=== PATIENT | male | born 1975 | race African-American/Black ===

== ENCOUNTER → 2020-02-22 | Outpatient (CLI) | payer MEDICAID ==
--- NOTE | 2020-02-22 11:30 | RADIOLOGY REPORT (SQ) ---
EXAM DESCRIPTION: CHEST PA/LATERAL IMAGES COMPLETED DATE/TIME: 02/22/2020 11:13 am REASON FOR STUDY: DYSPNEA, UNSPECIFIED COMPARISON: None. EXAM PARAMETERS: NUMBER OF VIEWS: two views TECHNIQUE: Digital Frontal and Lateral radiographic views of the chest acquired. RADIATION DOSE: NA LIMITATIONS: none FINDINGS: LUNGS AND PLEURA: No opacities, masses or pneumothorax. No pleural effusion. Hyperinflati on. MEDIASTINUM AND HILAR STRUCTURES: No masses or contour abnormalities. HEART AND VASCULAR STRUCTURES: Heart normal size. No evidence for failure. BONES: No acute findings. HARDWARE: None in the chest. OTHER: No other significant finding. IMPRESSION: Hyperinflation. No other evidence of acute intrathoracic process. TECHNICAL DOCUMENTATION: JOB ID: [id number] 2010 [employer]- All Rights Reserved Reading location - IP/workstation name: [email or web address]
== END ==
LOC: OD 10:46
PROVIDERS: ATTEND Internal Medicine
DX: R06.00 Dyspnea, unspecified (principal)
CPT/HCPCS: 71046

== ENCOUNTER 2020-02-28 12:28 | Inpatient (IN) | payer MEDICAID ==
--- NOTE | 2020-02-28 13:10 | ER Document Report ---
ED Medical Screen (RME) - General Chief Complaint: Abnormal Lab Results Stated Complaint: ABNORMAL LABS Time Seen by Provider: 02/28/20 13:05 Primary Care Provider: CABRERA RUIZ MD [Primary Care Provider] - Follow up as needed Notes: HPI: 44-year-old male presenting to the emergency department from urgent care for evaluation of significant anemia. Patient states over the last month he has noticed increasing shortness of breath with minimal exertion. No abdominal pain. States he eats a normal diet. Denies rectal bleeding or darkened stools. I have greeted and performed a rapid initial assessment of this patient. A comprehensive ED assessment and evaluation of the patient, analysis of test results and completion of the medical decision making process will be conducted by additional ED providers PHYSICAL EXAMINATION: Mild tachycardia. Lung sounds are clear to auscultation. No abdominal pain on palpation. Patient did come with lab work drawn at the clinic yesterday which shows a H&H of 3.8 and 15.5 I have greeted and performed a rapid initial assessment of this patient. A comprehensive ED assessment and evaluation of the patient, analysis of test results and completion of medical decision making process will be conducted by an additional ED providers. - Related Data Allergies/Adverse Reactions: No Known Allergies Allergy (Verified 02/28/20 12:45) Past Medical History - Social History Chew tobacco use (# tins/day): Yes Frequency of alcohol use: Social Drug Abuse: None Physical Exam - Vital signs Vitals: Temp Pulse Resp BP Pulse Ox 98.2 F 104 H 16 139/65 H 99 02/28/20 12:43 02/28/20 12:43 02/28/20 12:43 02/28/20 12:43 02/28/20 12:43 Course - Vital Signs Vital signs: Temp Pulse Resp BP Pulse Ox 98.2 F 104 H 16 139/65 H 99 02/28/20 12:43 02/28/20 12:43 02/28/20 12:43 02/28/20 12:43 02/28/20 12:43 Doctor's Discharge - Discharge Referrals: CABRERA RUIZ MD [Primary Care Provider] - Follow up as needed
[2020-02-28 13:23] LABS: MEAN CORPUSCULAR HEMOGLOBIN 16.4 pg (27.0-33.4); PLATELET COUNT 346 10^3/uL (150-450); RED BLOOD COUNT 2.66 10^6/uL (4.35-5.55); RED CELL DISTRIBUTION WIDTH 19.3 % (11.5-14.0); WHITE BLOOD COUNT 8.9 10^3/uL (4.0-10.5)
[2020-02-28 13:29] LABS: INTERNATIONAL RATION (INR) 1.07; PROTHROMBIN TIME 13.9 SEC (11.4-15.4)
[2020-02-28 13:35] LABS: HEMATOCRIT 14.6 % (37.9-51.0); HEMOGLOBIN 4.4 g/dL (13.5-17.0)
[2020-02-28 13:36] LABS: MEAN CORPUSCULAR VOLUME 55 fl (80-97)
[2020-02-28 13:40] LABS: ABSOLUTE LYMPHOCYTES# (MANUAL) 0.5 10^3/uL (0.5-4.7); ALBUMIN 3.8 g/dL (3.5-5.0); ALKALINE PHOSPHATASE 27 U/L (38-126); ANION GAP 9 (5-19); ASPARTATE AMINO TRANSFERASE 30 U/L (17-59); BASOPHILS % (MANUAL) 0 % (0-2); BILIRUBIN,DIRECT 0.2 mg/dL (0.0-0.4); BILIRUBIN,TOTAL 0.3 mg/dL (0.2-1.3); BLOOD UREA NITROGEN 18 mg/dL (7-20); CARBON DIOXIDE 21 mmol/L (22-30); CHLORIDE 106 mmol/L (98-107); EOSINOPHILS % (MANUAL) 1 % (0-6); GLUCOSE 99 mg/dL (75-110); LYMPHOCYTES % (MANUAL) 6 % (13-45); MONOCYTES % (MANUAL) 11 % (3-13); NUCLEATED RED BLOOD CELLS 2 /100 WBC (0); POTASSIUM 4.4 mmol/L (3.6-5.0); SEGMENTED NEUTROPHILS % (MAN) 82 % (42-78); TOTAL CELLS COUNTED 100; TOTAL PROTEIN 7.1 g/dL (6.3-8.2)
[2020-02-28 13:43] LABS: ANISOCYTOSIS 2+; HYPOCHROMASIA 3+; POIKILOCYTOSIS 1+; POLYCHROMASIA 1+; SCHISTOCYTES 1+; TARGET CELLS SLIGHT; TEAR DROP CELLS 1+
[2020-02-28 13:44] LABS: PLATELET COMMENT ADEQUATE; PLATELET LARGE PRESENT
--- NOTE | 2020-02-28 13:58 | ER Document Report ---
ED General - General Chief Complaint: Abnormal Lab Results Stated Complaint: ABNORMAL LABS Time Seen by Provider: 02/28/20 13:05 Primary Care Provider: CABRERA RUIZ MD [Primary Care Provider] - Follow up as needed Notes: Patient is a 44-year-old -English male with no reported past medical history who presents to the emergency department with a chief complaint of being sent here from the physician's office for a low hemoglobin of 4.4. Patient states he does feel a little winded or short of breath when he walks or exerts himself but states otherwise he feels fine. He denies any history of anemia. Denies any complaints resting in bed at this time. - Related Data Allergies/Adverse Reactions: No Known Allergies Allergy (Verified 02/28/20 12:45) Past Medical History - Social History Smoking Status: Never Smoker Chew tobacco use (# tins/day): Yes Frequency of alcohol use: Social Drug Abuse: None Family History: Hypertension Patient has suicidal ideation: No Patient has homicidal ideation: No Review of Systems - Review of Systems Cardiovascular: Other - Dyspnea on exertion -: Yes All other systems reviewed and negative Physical Exam - Vital signs Vitals: Temp Pulse Resp BP Pulse Ox 98.2 F 104 H 16 139/65 H 99 02/28/20 12:43 02/28/20 12:43 02/28/20 12:43 02/28/20 12:43 02/28/20 12:43 - General General appearance: Appears well, Alert In distress: None - HEENT Head: Normocephalic, Atraumatic Eyes: Normal Conjunctiva: Other - Pale palpebral conjunctiva inferiorly Extraocular movements intact: Yes Eyelashes: Normal Pupils: PERRL Mouth/Lips: Normal Mucous membranes: Moist Pharynx: Normal Neck: Normal, Supple - Respiratory Respiratory status: No respiratory distress Chest status: Nontender Breath sounds: Normal Chest palpation: Normal - Cardiovascular Rhythm: Regular Heart sounds: Normal auscultation - Abdominal Inspection: Normal Distension: No distension Bowel sounds: Normal Tenderness: Nontender Organomegaly: No organomegaly - Rectal Tenderness: No Stool: Heme positive Hemorrhoids: External - Extremities General upper extremity: Normal inspection, Nontender, Normal color, Normal ROM, Normal temperature General lower extremity: Normal inspection, Nontender, Normal color, Normal ROM, Normal temperature, Normal weight bearing. No: Jose's sign - Neurological Neuro grossly intact: Yes Cognition: Normal Orientation: AAOx4 Jarrod Coma Scale Eye Opening: Spontaneous Jarrod Coma Scale Verbal: Oriented Jarrod Coma Scale Motor: Obeys Commands Jarrod Coma Scale Total: 15 Speech: Normal Motor strength normal: LUE, RUE, LLE, RLE Sensory: Normal - Psychological Associated symptoms: Normal affect, Normal mood - Skin Skin Temperature: Warm Skin Moisture: Dry Skin Color: Normal Course - Re-evaluation Re-evalutation: 02/28/20 14:34 EK:35 PM, sinus at 97 bpm. Normal intervals. LVH. No STEMI. 02/28/20 15:[address] Ramires regarding the patient for admission. He requested surgical consultation for possible scoping to assess for any bleeding and to obtain iron studies before giving the blood. 2 units have been ordered as the patient's hemoglobin is 4.4. Patient is currently resting comfortably in the bed asymptomatic with stable vital signs. We will obtain the iron studies prior to transfusing 2 units. I spoke with Dr. Akins, surgery on-call who advised he will be happy to consult on the patient. I then spoke with Dr. Gay for ultimate admission, he will admit the patient to IMCU. 02/28/20 15:10 Rectal exam was performed, he was Hemoccult positive. Patient does admit to craving powdered starch that he has been eating recently. Dr. Gay informed and at bedside. - Vital Signs Vital signs: Temp Pulse Resp BP Pulse Ox 98.2 F 104 H 18 139/65 H 99 02/28/20 12:43 02/28/20 12:43 02/28/20 14:36 02/28/20 12:43 02/28/20 12:43 - Laboratory Result Diagrams: 02/28/20 12:59 02/28/20 12:59 Laboratory results interpreted by me: 02/28/20 02/28/20 02/28/20 12:59 12:59 12:59 RBC 2.66 L Hgb 4.4 L* Hct 14.6 L* MCV 55 L MCH 16.4 L MCHC 30.0 L RDW 19.3 H Seg Neuts % (Manual) 82 H Lymphocytes % (Manual) 6 L Sodium 136.0 L Carbon Dioxide 21 L Alkaline Phosphatase 27 L Crossmatch See Detail Discharge - Discharge Clinical Impression: Severe anemia, Microcytic anemia, Dyspnea on exertion, Blood in stool Condition: Stable Disposition: ADMITTED INPATIENT Admitting Provider: Victor Hugo (Hospitalist) Unit Admitted: IMCU Referrals: CABRERA RUIZ MD [Primary Care Provider] - Follow up as needed
[2020-02-28] MEDS ORDERED: NORMAL SALINE 250 ML IV PRN ×4 (14:27→15:16)
[2020-02-28] MEDS ORDERED: ONDANSETRON HCL INJ/PF 4 MG/2 ML SDV IV PRN (15:18)
[2020-02-28] MEDS ORDERED: PEDI NO 1 IV ONE (15:22)
[2020-02-28] MEDS ORDERED: VIT K IV ONE (15:22)
[2020-02-28] MEDS ORDERED: MVI IV ONE (15:22)
--- NOTE | 2020-02-28 15:31 | PDOC H&P ---
History of Present Illness Admission Date/PCP: CABRERA RUIZ Patient complains of: Shortness of breath associated with weakness History of Present Illness: GORDON AMOR is a 44 year old male With no significant past medical history went to primary care physician's office couple of days ago routine blood work indicates hemoglobin of 3.8. Patient came to the emergency room with complaints of palpitations associated with shortness of breath and generalized weakness. He admitted to using starches recently couple of spoons on daily basis. He also admitted to taking dirt for cravings until couple of months ago. The emergency room stool guaiac was positive. Patient denies any nausea denies any vomiting's denies any diarrhea. Is taking baby aspirin at home. Hemoglobin in the emergency room is 4.4 and plan is to admit him to IMCU transfuse 4 units of PRBC and surgical consult was requested. Patient vital signs are stable at this time. Past Surgical History Past Surgical History: Reports: Orthopedic Surgery - hip replacement Social History Information Source: Patient Smoking Status: Never Smoker Electronic Cigarette use?: No Frequency of Alcohol Use: Rare Hx Recreational Drug Use: No Hx Prescription Drug Abuse: No - Advance Directive Resuscitation Status: Full Code Family History Family History: Hypertension Parental Family History Reviewed: Yes - Family history of hypertension Children Family History Reviewed: Yes Sibling(s) Family History Reviewed.: Yes Medication/Allergy Home Medications: No Home Medications 02/28/20 Allergies/Adverse Reactions: No Known Allergies Allergy (Verified 02/28/20 12:45) Review of Systems Constitutional: PRESENT: fatigue, weakness. ABSENT: fever(s), headache(s) Eyes: ABSENT: visual disturbances Cardiovascular: PRESENT: dyspnea on exertion, palpitations Respiratory: PRESENT: dyspnea. ABSENT: hemoptysis, sputum Gastrointestinal: ABSENT: coffee ground emesis, constipation, diarrhea, dysphagia, heartburn, hematemesis, hematochezia Genitourinary: ABSENT: dysuria, hematuria Musculoskeletal: ABSENT: joint swelling Integumentary: ABSENT: rash, wounds Neurological: PRESENT: dizziness Psychiatric: ABSENT: anxiety, depression, homidical ideation, suicidal ideation Endocrine: ABSENT: cold intolerance, heat intolerance, polydipsia, polyuria Physical Exam Vital Signs: Temp Pulse Resp BP Pulse Ox 98.2 F 104 H 19 117/57 L 98 02/28/20 12:43 02/28/20 12:43 02/28/20 15:01 02/28/20 15:00 02/28/20 15:01 Intake & Output 02/27/20 02/28/20 02/29/20 06:59 06:59 06:59 Weight 83.9 kg General appearance: PRESENT: no acute distress, cooperative, well-developed Head exam: PRESENT: atraumatic Eye exam: PRESENT: conjunctiva pale, PERRLA Ear exam: PRESENT: normal external ear exam Mouth exam: PRESENT: neck supple Teeth exam: PRESENT: poor dentation Neck exam: ABSENT: carotid bruit, JVD, lymphadenopathy, thyromegaly Respiratory exam: PRESENT: decreased breath sounds Cardiovascular exam: PRESENT: RRR. ABSENT: diastolic murmur, rubs, systolic murmur GI/Abdominal exam: PRESENT: normal bowel sounds, soft. ABSENT: distended, guar ding, mass, organolmegaly, rebound, tenderness Extremities exam: PRESENT: full ROM. ABSENT: calf tenderness, clubbing, pedal edema Neurological exam: PRESENT: alert, awake, oriented to person, oriented to place, oriented to time, oriented to situation, CN II-XII grossly intact. ABSENT: motor sensory deficit Psychiatric exam: PRESENT: appropriate affect, normal mood. ABSENT: homicidal ideation, suicidal ideation Results Laboratory Results: 02/28/20 12:59 02/28/20 12:59 02/28/20 02/28/20 02/28/20 12:59 12:59 12:59 WBC 8.9 RBC 2.66 L Hgb 4.4 L* Hct 14.6 L* MCV 55 L MCH 16.4 L MCHC 30.0 L RDW 19.3 H Plt Count 346 Seg Neutrophils % Not Reportable Sodium 136.0 L Potassium 4.4 Chloride 106 Carbon Dioxide 21 L Anion Gap 9 BUN 18 Creatinine 1.08 Est GFR ( Amer) > 60 Glucose 99 Calcium 9.0 Total Bilirubin 0.3 AST 30 Alkaline Phosphatase 27 L Total Protein 7.1 Albumin 3.8 Blood Type A POSITIVE Antibody Screen NEGATIVE Assessment and Plan - Diagnosis (1) Severe anemia Is this a current diagnosis for this admission?: Yes Plan: 02/28/2020-patient is going to be admitted to see you for severe anemia admission hemoglobin is 4.4. To transfuse 4 units of PRBC and order was placed by the ED physician. Patient is going to be n.p.o. surgical consult was requested. DVT prophylaxis with DESTINY hoses. GI prophylaxis initiated with Protonix 40 mg IV twice daily. Counseling was provided about avoiding craving for dirt and starch. To give IV iron today. Anemia work-up requested. Serum bilirubin is stable. Stool guaiac was positive in the emergency room. plan to recheck the labs tomorrow. Patient may have a acute GI bleed and patient may need endoscopy. I will leave the recommendations to Dr. Akins. Because of severe anemia aspiration fall seizure precautions are requested. (2) Dyspnea on exertion Is this a current diagnosis for this admission?: Yes Plan: 02/28/2020-patient came in with complaints of shortness of breath associated with palpitations shortness of breath especially with exercise. Shortness of breath most likely secondary to severe anemia. (3) Microcytic anemia Is this a current diagnosis for this admission?: Yes Plan: 02/28/2020-blood work indicates microcytic anemia. It can be secondary to iron deficiency anemia due to pica.
[2020-02-28] MEDS ORDERED: IRON SUCROSE COMPLEX INJ/PF 100 MG/5 ML SDV IV ONE (16:00)
[2020-02-28 16:13] LABS: ABSOLUTE RETICS # 0.101 10^6/uL (0.028-0.122); RETICULOCYTE COUNT (AUTO) 3.76 % (0.66-2.85)
--- NOTE | 2020-02-28 16:17 | RADIOLOGY REPORT (SQ) ---
EXAM DESCRIPTION: CHEST SINGLE VIEW IMAGES COMPLETED DATE/TIME: 02/28/2020 3:49 pm REASON FOR STUDY: shortness of breath COMPARISON: 02/22/2020 two-view chest EXAM PARAMETERS: NUMBER OF VIEWS: One view. TECHNIQUE: Single frontal radiographic view of the chest acquired. RADIATION DOSE: NA LIMITATIONS: None. FINDINGS: LUNGS AND PLEURA: No opacities, masses or pneumothorax. No pleural effusion. MEDIASTINUM AND HILAR STRUCTURES: No masses. Contour normal. HEART AND VASCULAR STRUCTURES: Heart normal in size. Normal vasculature. BONES: No acute findings. HARDWARE: None in the chest. OTHER: No other significant finding. IMPRESSION: NO ACUTE RADIOGRAPHIC FINDING IN THE CHEST. TECHNICAL DOCUMENTATION: JOB ID: [id number] 2010 [employer]- All Rights Reserved Reading location - IP/workstation name: [id number]
[2020-02-28 16:24] LABS: IRON(TIBC) 22.3 ug/dL (49-181)
[2020-02-28 16:29] LABS: APPEARANCE,URINE CLEAR; BILIRUBIN,URINE NEGATIVE (NEGATIVE); COLOR,URINE YELLOW; GLUCOSE, URINE NEGATIVE (NEGATIVE); KETONES,URINE NEGATIVE (NEGATIVE); LEUKOCYTE ESTERASE,URINE NEGATIVE (NEGATIVE); NITRITE,URINE NEGATIVE (NEGATIVE); PROTEIN,URINE NEGATIVE (NEGATIVE); URINE SPECIFIC GRAVITY 1.012; UROBILINOGEN,URINE NEGATIVE mg/dL (<2.0)
[2020-02-28 16:56] LABS: FERRITIN 3.08 ng/mL (17.9-464.0)
[2020-02-28] MEDS ORDERED: NORMAL SALINE 1000 ML 1,000 ML with THIAMINE HCL 100 MG, MVI, ADULT NO.1 WITH VIT K 10 ... IV ONE ×4 (18:00)
--- NOTE | 2020-02-28 21:59 | EKG REPORT ---
SEVERITY:- ABNORMAL ECG - SINUS OR ECTOPIC ATRIAL RHYTHM LEFT VENTRICULAR HYPERTROPHY : Confirmed by: Humaira Bocanegra MD 28-Feb-2020 21:58:17
[2020-02-28] MEDS: PANTOPRAZOLE SODIUM 40 MG VIAL IV SCH (23:00)
[2020-02-28 23:46] LABS: URINE AMPHETAMINES SCREEN NEGATIVE; URINE BARBITURATES SCREEN NEGATIVE; URINE BENZODIAZEPINES SCREEN NEGATIVE; URINE COCAINE SCREEN NEGATIVE; URINE MARIJUANA (THC) SCREEN NEGATIVE; URINE METHADONE SCREEN NEGATIVE; URINE PHENCYCLIDINE SCREEN NEGATIVE
[2020-02-29 06:21] LABS: ABSOLUTE EOSINOPHILS # (AUTO) 0.2 10^3/uL (0.0-0.6); ABSOLUTE LYMPHOCYTES (AUTO) 1.2 10^3/uL (0.5-4.7); ABSOLUTE MONOCYTES (AUTO) 0.9 10^3/uL (0.1-1.4); BASOPHILS % (AUTO) 0.4 % (0-2); EOSINOPHILS % (AUTO) 3.3 % (0-6); HEMATOCRIT 23.6 % (37.9-51.0); LYMPHOCYTES % (AUTO) 16.2 % (13-45); MEAN CORPUSCULAR HEMOGLOBIN 22.2 pg (27.0-33.4); MEAN CORPUSCULAR HGB CONC 32.8 g/dL (32.0-36.0); MONOCYTES % (AUTO) 12.1 % (3-13); PLATELET COUNT 194 10^3/uL (150-450); RED BLOOD COUNT 3.48 10^6/uL (4.35-5.55); RED CELL DISTRIBUTION WIDTH 33.2 % (11.5-14.0); TOTAL CELLS COUNTED % (AUTO) 100 %; WHITE BLOOD COUNT 7.4 10^3/uL (4.0-10.5)
[2020-02-29 06:23] LABS: INTERNATIONAL RATION (INR) 1.11; PROTHROMBIN TIME 14.4 SEC (11.4-15.4)
[2020-02-29 06:34] LABS: ALKALINE PHOSPHATASE 23 U/L (38-126); ANION GAP 5 (5-19); ASPARTATE AMINO TRANSFERASE 27 U/L (17-59); BILIRUBIN,TOTAL 0.9 mg/dL (0.2-1.3); BLOOD UREA NITROGEN 14 mg/dL (7-20); CALCIUM 8.4 mg/dL (8.4-10.2); CARBON DIOXIDE 19 mmol/L (22-30); CHLORIDE 110 mmol/L (98-107); CHOLESTEROL 77.25 mg/dL (0-200); GLUCOSE 88 mg/dL (75-110); MEAN CORPUSCULAR VOLUME 68 fl (80-97); POTASSIUM 4.7 mmol/L (3.6-5.0); TRIGLYCERIDES 39 mg/dL (<150)
[2020-02-29 06:44] LABS: ANISOCYTOSIS 4+; HYPOCHROMASIA 1+; PLATELET COMMENT ADEQUATE; POIKILOCYTOSIS SLIGHT; POLYCHROMASIA 1+; TARGET CELLS SLIGHT
[2020-02-29 06:46] LABS: DIRECT LDL 37 mg/dL (<100); HEMOGLOBIN 7.7 g/dL (13.5-17.0)
[2020-02-29 08:37] LABS: PATH REVIEW PATHOLOGIST REVIEWED
[2020-02-29] MEDS: PANTOPRAZOLE SODIUM 40 MG VIAL IV SCH ×2 (09:05→21:19)
--- NOTE | 2020-02-29 09:33 | PDOC PROGRESS REPORT ---
Subjective Progress Note for:: 02/29/20 Subjective:: 44 year old male With no significant past medical history went to primary care physician's office couple of days ago routine blood work indicates hemoglobin of 3.8. Patient came to the emergency room with complaints of palpitations associated with shortness of breath and generalized weakness. He admitted to using starches recently couple of spoons on daily basis. He also admitted to taking dirt for cravings until couple of months ago. The emergency room stool guaiac was positive. Patient denies any nausea denies any vomiting's denies any diarrhea. Is taking baby aspirin at home. Hemoglobin in the emergency room is 4.4 and plan is to admit him to IMCU transfuse 4 units of PRBC and surgical consult was requested. Patient vital signs are stable at this time. [id number]-old male admitted with hemoglobin of 4.4, status post 4 units of PRBC was given hemoglobin came up to 7.7. Surgical consult was done recommendation is to do the EGD and colonoscopy as an outpatient. Patient is on regular diet now. Plan is to continue to closely monitor his labs today and tomorrow if the hemoglobin is stable plan is to discharge him home tomorrow. Patient is feeling much better denies any palpitations denies any shortness of breath this morning. Reason For Visit: SEVERE ANEMIA Physical Exam Vital Signs: Temp Pulse Resp BP Pulse Ox 97.9 F 80 18 111/57 L 100 02/29/20 08:06 02/29/20 08:06 02/29/20 08:06 02/29/20 08:06 02/29/20 08:06 Intake & Output 02/28/20 02/29/20 03/01/20 06:59 06:59 06:59 Intake Total 3081.2 Output Total 150 Balance 2931.2 Weight 84.6 kg General appearance: PRESENT: no acute distress, well-developed Head exam: PRESENT: atraumatic Eye exam: PRESENT: conjunctiva pale, PERRLA Mouth exam: PRESENT: moist Teeth exam: PRESENT: poor dentation Neck exam: ABSENT: carotid bruit, JVD, lymphadenopathy, thyromegaly Respiratory exam: PRESENT: decreased breath sounds Cardiovascular exam: PRESENT: RRR. ABSENT: diastolic murmur, rubs, systolic murmur Pulses: PRESENT: normal dorsalis pedis pul GI/Abdominal exam: PRESENT: normal bowel sounds, soft. ABSENT: distended, guarding, mass, organolmegaly, rebound, tenderness Rectal exam: PRESENT: deferred Extremities exam: PRESENT: full ROM. ABSENT: calf tenderness, clubbing, pedal edema Neurological exam: PRESENT: alert, awake, oriented to person, oriented to place, oriented to time, oriented to situation, CN II-XII grossly intact. ABSENT: motor sensory deficit Psychiatric exam: PRESENT: appropriate affect, normal mood. ABSENT: homicidal ideation, suicidal ideation Results Laboratory Results: 02/29/20 05:58 02/29/20 05:58 02/28/20 02/28/20 02/28/20 12:59 12:59 12:59 WBC 8.9 RBC 2.66 L Hgb 4.4 L* Hct 14.6 L* MCV 55 L MCH 16.4 L MCHC 30.0 L RDW 19.3 H Plt Count 346 Seg Neutrophils % Not Reportable Retic Count (auto) Sodium 136.0 L Potassium 4.4 Chloride 106 Carbon Dioxide 21 L Anion Gap 9 BUN 18 Creatinine 1.08 Est GFR ( Amer) > 60 Glucose 99 Calcium 9.0 Magnesium Iron TIBC % Saturation Ferritin Total Bilirubin 0.3 AST 30 Alkaline Phosphatase 27 L Ammonia Total Protein 7.1 Albumin 3.8 Triglycerides Cholesterol LDL Cholesterol Direct VLDL Cholesterol HDL Cholesterol Vitamin B12 Folate Urine Color Urine Appearance Urine pH Ur Specific [place] Urine Protein Urine Glucose (UA) Urine Ketones Urine Blood Urine Nitrite Ur Leukocyte Esterase Urine WBC (Auto) Urine RBC (Auto) Blood Type A POSITIVE Antibody Screen NEGATIVE 02/28/20 02/28/20 02/28/20 12:59 12:59 15:36 WBC RBC Hgb Hct MCV MCH MCHC RDW Plt Count Seg Neutrophils % Retic Count (auto) 3.76 H Sodium Potassium Chloride Carbon Dioxide Anion Gap BUN Creatinine Est GFR ( Amer) Glucose Calcium Magnesium Iron 22.3 L TIBC 450 % Saturation 5 Ferritin 3.08 L Total Bilirubin AST Alkaline Phosphatase Ammonia Total Protein Albumin Triglycerides Cholesterol LDL Cholesterol Direct VLDL Cholesterol HDL Cholesterol Vitamin B12 377.0 Folate 11.20 Urine Color YELLOW Urine Appearance CLEAR Urine pH 5.0 Ur Specific [place] 1.012 Urine Protein NEGATIVE Urine Glucose (UA) NEGATIVE Urine Ketones NEGATIVE Urine Blood NEGATIVE Urine Nitrite NEGATIVE Ur Leukocyte Esterase NEGATIVE Urine WBC (Auto) 0 Urine RBC (Auto) 0 Blood Type Antibody Screen 02/29/20 02/29/20 02/29/20 05:58 05:58 05:58 WBC 7.4 RBC 3.48 L Hgb 7.7 L D Hct 23.6 L MCV 68 L D MCH 22.2 L MCHC 32.8 RDW 33.2 H Plt Count 194 Seg Neutrophils % 68.0 Retic Count (auto) Sodium 134.4 L Potassium 4.7 Chloride 110 H Carbon Dioxide 19 L Anion Gap 5 BUN 14 Creatinine 0.96 Est GFR ( Amer) > 60 Glucose 88 Calcium 8.4 Magnesium 2.0 Iron TIBC % Saturation Ferritin Total Bilirubin 0.9 AST 27 Alkaline Phosphatase 23 L Ammonia 12.2 Total Protein 6.0 L Albumin 3.0 L Triglycerides 39 Cholesterol 77.25 LDL Cholesterol Direct 37 VLDL Cholesterol 8.0 L HDL Cholesterol 34 L Vitamin B12 Folate Urine Color Urine Appearance Urine pH Ur Specific [place] Urine Protein Urine Glucose (UA) Urine Ketones Urine Blood Urine Nitrite Ur Leukocyte Esterase Urine WBC (Auto) Urine RBC (Auto) Blood Type Antibody Screen 02/29/20 05:58 NT-Pro-B Natriuret Pep 78 Impressions: Chest X-Ray 02/28/20 15:21 IMPRESSION: NO ACUTE RADIOGRAPHIC FINDING IN THE CHEST. Assessment and Plan - Diagnosis (1) Severe anemia Is this a current diagnosis for this admission?: Yes Plan: 02/28/2020-patient is going to be admitted to see you for severe anemia admission hemoglobin is 4.4. To transfuse 4 units of PRBC and order was placed by the ED physician. Patient is going to be n.p.o. surgical consult was requested. DVT prophylaxis with DESTINY hoses. GI prophylaxis initiated with Protonix 40 mg IV twice daily. Counseling was provided about avoiding craving for dirt and starch. To give IV iron today. Anemia work-up requested. Serum bilirubin is stable. Stool guaiac was positive in the emergency room. plan to recheck the labs tomorrow. Patient may have a acute GI bleed and patient may need endoscopy. I will leave the recommendations to Dr. Akins. Because of severe anemia aspiration fall seizure precautions are requested. 02/29/2020-patient admitted with severe anemia cause is unknown at this time. Stool CoVac was positive. Definitely patient has a GI bleed. Patient is also admitting starch and dirt. Status post 4 units of PRBC was given and IV sucrose was given hemoglobin came up to 7.7. He was also getting multivitamin including folate and thiamine. GI prophylaxis is provided. Not on DVT prophylaxis. Plan is to recheck the labs tomorrow if stable he can go home and follow-up with Dr. Akins as an outpatient for endoscopy. (2) Dyspnea on exertion Is this a current diagnosis for this admission?: Yes Plan: 02/28/2020-patient came in with complaints of shortness of breath associated with palpitations shortness of breath especially with exercise. Shortness of breath most likely secondary to severe anemia. 4 8020-patient denies any shortness of breath this morning pulse ox is 98% on room air. Plan is to continue the present management dyspnea on exertion most likely secondary to severe anemia resolved. (3) Microcytic anemia Is this a current diagnosis for this admission?: Yes Plan: 02/28/2020-blood work indicates microcytic anemia. It can be secondary to iron deficiency anemia due to pica.
--- NOTE | 2020-02-29 15:07 | PDOC CONSULTATION ---
Consultation Consult Date: 02/29/20 Provider Consulted: SURGICAL SURGICALIST MD Consult reason:: Severe anemia History of Present Illness Admission Date/PCP: 02/28/20 15:21 CABRERA RUIZ Patient complains of: Dizziness, shortness of breath, anemia History of Present Illness: GORDON AMOR is a 44 year old male seen at the request of the hospitalist service. This is a patient with sickle cell trait. He reports recently being released from skilled nursing, where they "venus lots of blood". The patient reports that after his last blood draw he was orthostatic, dizzy, and short of breath. This progressed and he presented to the emergency department for evaluation. He was found to have a very low hemoglobin at 4.4. The patient denies any melena, hematochezia, or hematemesis. He denies abdominal pain, abdominal cramping, diarrhea, constipation, nausea, or vomiting. Per Dr. Gay's report, the patient does have atypical eating habits, consistent with pica. The patient is recently status post blood administration, and denies any shortness of breath, orthostasis, or dizziness today. Patient reports that he is hungry today, and would like to go home. Past Medical History Hematology: Reports: Other - Sickle cell trait Past Surgical History Past Surgical History: Reports: Orthopedic Surgery - hip replacement Social History Smoking Status: Never Smoker Electronic Cigarette use?: No Frequency of Alcohol Use: Rare Hx Recreational Drug Use: No Hx Prescription Drug Abuse: No - Advance Directive Resuscitation Status: Full Code Family History Family History: Hypertension Parental Family History Reviewed: Yes Children Family History Reviewed: Yes Sibling(s) Family History Reviewed.: Yes Medication/Allergy Home Medications: No Home Medications 02/28/20 Allergies/Adverse Reactions: No Known Allergies Allergy (Verified 02/28/20 12:45) Review of Systems Constitutional: PRESENT: fatigue. ABSENT: anorexia, chills Eyes: ABSENT: visual disturbances Ears: ABSENT: hearing changes Nose, Mouth, and Throat: ABSENT: sore throat Cardiovascular: PRESENT: dyspnea on exertion. ABSENT: chest pain Respiratory: PRESENT: dyspnea Gastrointestinal: ABSENT: abdominal pain, bloating, constipation, diarrhea, heartburn, hematemesis, hematochezia, melena, nausea, vomiting Genitourinary: ABSENT: dysuria Musculoskeletal: ABSENT: back pain Integumentary: ABSENT: pruritus, rash Neurological: ABSENT: confusion, convulsions, dizziness Psychiatric: ABSENT: anxiety, depression Endocrine: ABSENT: cold intolerance, heat intolerance Hematologic/Lymphatic: ABSENT: easy bleeding, easy bruising Physical Exam Vital Signs: Temp Pulse Resp BP Pulse Ox 97.8 F 98 16 96/56 L 97 02/29/20 11:23 02/29/20 14:00 02/29/20 11:23 02/29/20 11:23 02/29/20 11:23 Intake & Output 02/28/20 02/29/20 03/01/20 06:59 06:59 06:59 Intake Total 3081.2 360 Output Total 150 Balance 2931.2 360 Weight 84.6 kg General appearance: PRESENT: no acute distress Head exam: PRESENT: atraumatic, normocephalic Eye exam: PRESENT: EOMI, PERRLA. ABSENT: scleral icterus Mouth exam: PRESENT: neck supple Neck exam: ABSENT: meningismus, tenderness, thyromegaly, tracheal deviation Respiratory exam: PRESENT: unlabored. ABSENT: tachypnea, wheezes Cardiovascular exam: ABSENT: tachycardia Pulses: PRESENT: normal radial pulses Vascular exam: ABSENT: pallor GI/Abdominal exam: PRESENT: soft. ABSENT: distended, rebound, rigid, tenderness Rectal exam: PRESENT: deferred Extremities exam: ABSENT: clubbing Neurological exam: PRESENT: alert, awake, oriented to person, oriented to place, oriented to time, oriented to situation, CN II-XII grossly intact Psychiatric exam: ABSENT: agitated, anxious, depressed Focused psych exam: ABSENT: delusional Skin exam: ABSENT: cyanosis, erythema, jaundice Results Laboratory Results: 02/29/20 05:58 02/29/20 05:58 02/28/20 02/28/20 02/28/20 12:59 12:59 12:59 WBC RBC Hgb Hct MCV MCH MCHC RDW Plt Count Seg Neutrophils % Retic Count (auto) 3.76 H Sodium Potassium Chloride Carbon Dioxide Anion Gap BUN Creatinine Est GFR ( Amer) Glucose Calcium Magnesium Iron 22.3 L TIBC 450 % Saturation 5 Ferritin 3.08 L Total Bilirubin AST Alkaline Phosphatase Ammonia Total Protein Albumin Triglycerides Cholesterol LDL Cholesterol Direct VLDL Cholesterol HDL Cholesterol Vitamin B12 377.0 Folate 11.20 Urine Color Urine Appearance Urine pH Ur Specific [place] Urine Protein Urine Glucose (UA) Urine Ketones Urine Blood Urine Nitrite Ur Leukocyte Esterase Urine WBC (Auto) Urine RBC (Auto) Blood Type A POSITIVE Antibody Screen NEGATIVE 02/28/20 02/29/20 02/29/20 15:36 05:58 05:58 WBC 7.4 RBC 3.48 L Hgb 7.7 L D Hct 23.6 L MCV 68 L D MCH 22.2 L MCHC 32.8 RDW 33.2 H Plt Count 194 Seg Neutrophils % 68.0 Retic Count (auto) Sodium 134.4 L Potassium 4.7 Chloride 110 H Carbon Dioxide 19 L Anion Gap 5 BUN 14 Creatinine 0.96 Est GFR ( Amer) > 60 Glucose 88 Calcium 8.4 Magnesium 2.0 Iron TIBC % Saturation Ferritin Total Bilirubin 0.9 AST 27 Alkaline Phosphatase 23 L Ammonia Total Protein 6.0 L Albumin 3.0 L Triglycerides 39 Cholesterol 77.25 LDL Cholesterol Direct 37 VLDL Cholesterol 8.0 L HDL Cholesterol 34 L Vitamin B12 Folate Urine Color YELLOW Urine Appearance CLEAR Urine pH 5.0 Ur Specific [place] 1.012 Urine Protein NEGATIVE Urine Glucose (UA) NEGATIVE Urine Ketones NEGATIVE Urine Blood NEGATIVE Urine Nitrite NEGATIVE Ur Leukocyte Esterase NEGATIVE Urine WBC (Auto) 0 Urine RBC (Auto) 0 Blood Type Antibody Screen 02/29/20 05:58 WBC RBC Hgb Hct MCV MCH MCHC RDW Plt Count Seg Neutrophils % Retic Count (auto) Sodium Potassium Chloride Carbon Dioxide Anion Gap BUN Creatinine Est GFR ( Amer) Glucose Calcium Magnesium Iron TIBC % Saturation Ferritin Total Bilirubin AST Alkaline Phosphatase Ammonia 12.2 Total Protein Albumin Triglycerides Cholesterol LDL Cholesterol Direct VLDL Cholesterol HDL Cholesterol Vitamin B12 Folate Urine Color Urine Appearance Urine pH Ur Specific [place] Urine Protein Urine Glucose (UA) Urine Ketones Urine Blood Urine Nitrite Ur Leukocyte Esterase Urine WBC (Auto) Urine RBC (Auto) Blood Type Antibody Screen 02/29/20 05:58 NT-Pro-B Natriuret Pep 78 Impressions: Chest X-Ray 02/28/20 15:21 IMPRESSION: NO ACUTE RADIOGRAPHIC FINDING IN THE CHEST. Assessment & Plan - Diagnosis (1) Severe anemia Is this a current diagnosis for this admission?: Yes - Plan Summary Plan Summary: This is a 44-year-old male with severe anemia, presenting with shortness of breath, fatigue, and malaise. The patient denies hematochezia, melena, hematemesis, nausea, vomiting, abdominal pain, constipation, or diarrhea. The patient would definitely benefit from endoscopic work-up (EGD and colonoscopy). At this time he has no evidence of active bleeding. I recommend once the patient is stable, discharge home with outpatient endoscopy in 4 to 6 weeks (once the Covid-19 pandemic has passed). The patient is not in any distress at this time. He does not appear to be actively bleeding. Surgery will sign off at this time. Please renotify with any qustions or concerns.
[2020-03-01 06:02] LABS: ABSOLUTE BASOPHILS # (AUTO) 0.1 10^3/uL (0.0-0.2); ABSOLUTE EOSINOPHILS # (AUTO) 0.4 10^3/uL (0.0-0.6); ABSOLUTE LYMPHOCYTES (AUTO) 1.6 10^3/uL (0.5-4.7); ABSOLUTE MONOCYTES (AUTO) 0.9 10^3/uL (0.1-1.4); ABSOLUTE NEUT (AUTO) 6.1 10^3/uL (1.7-8.2); BASOPHILS % (AUTO) 0.6 % (0-2); EOSINOPHILS % (AUTO) 4.4 % (0-6); HEMATOCRIT 24.5 % (37.9-51.0); HEMOGLOBIN 8.1 g/dL (13.5-17.0); LYMPHOCYTES % (AUTO) 17.4 % (13-45); MEAN CORPUSCULAR HEMOGLOBIN 22.4 pg (27.0-33.4); MEAN CORPUSCULAR HGB CONC 33.3 g/dL (32.0-36.0); MEAN CORPUSCULAR VOLUME 67 fl (80-97); PLATELET COUNT 189 10^3/uL (150-450); RED BLOOD COUNT 3.64 10^6/uL (4.35-5.55); RED CELL DISTRIBUTION WIDTH 33.1 % (11.5-14.0); SEGMENTED NEUTROPHILS % (AUTO) 67.6 % (42-78); TOTAL CELLS COUNTED % (AUTO) 100 %
[2020-03-01 06:23] LABS: ALKALINE PHOSPHATASE 23 U/L (38-126); ANION GAP 5 (5-19); ASPARTATE AMINO TRANSFERASE 28 U/L (17-59); BILIRUBIN,TOTAL 0.3 mg/dL (0.2-1.3); BLOOD UREA NITROGEN 13 mg/dL (7-20); CALCIUM 8.6 mg/dL (8.4-10.2); CARBON DIOXIDE 24 mmol/L (22-30); CHLORIDE 107 mmol/L (98-107); GLUCOSE 91 mg/dL (75-110); POTASSIUM 4.6 mmol/L (3.6-5.0)
[2020-03-01 06:44] LABS: ANISOCYTOSIS 4+
[2020-03-01 06:46] LABS: HYPOCHROMASIA 1+; PLATELET CLUMPS PRESENT; POLYCHROMASIA 1+
[2020-03-01 06:47] LABS: OVALOCYTES SLIGHT; TEAR DROP CELLS SLIGHT
[2020-03-01 08:14] VITALS: BP 118/51
--- NOTE | 2020-03-01 09:14 | PDOC DISCHARGE SUMMARY ---
Impression - Admit/DC Date/PCP Admission Date/Primary Care Provider: 02/28/20 15:21 CABRERA RUIZ Discharge Date: 07/01/20 - Discharge Diagnosis (1) Severe anemia Is this a current diagnosis for this admission?: Yes (2) Dyspnea on exertion Is this a current diagnosis for this admission?: Yes (3) Microcytic anemia Is this a current diagnosis for this admission?: Yes - Assessment Summary: (1) Severe anemia Is this a current diagnosis for this admission?: Yes Plan: 02/28/2020-patient is going to be admitted to see you for severe anemia admission hemoglobin is 4.4. To transfuse 4 units of PRBC and order was placed by the ED physician. Patient is going to be n.p.o. surgical consult was requested. DVT prophylaxis with DESTINY hoses. GI prophylaxis initiated with Protonix 40 mg IV twice daily. Counseling was provided about avoiding craving for dirt and starch. To give IV iron today. Anemia work-up requested. Serum bilirubin is stable. Stool guaiac was positive in the emergency room. plan to recheck the labs tomorrow. Patient may have a acute GI bleed and patient may need endoscopy. I will leave the recommendations to Dr. Akins. Because of severe anemia aspiration fall seizure precautions are requested. 02/29/2020-patient admitted with severe anemia cause is unknown at this time. Stool CoVac was positive. Definitely patient has a GI bleed. Patient is also admitting starch and dirt. Status post 4 units of PRBC was given and IV sucrose was given hemoglobin came up to 7.7. He was also getting multivitamin including folate and thiamine. GI prophylaxis is provided. Not on DVT prophylaxis. Plan is to recheck the labs tomorrow if stable he can go home and follow-up with Dr. Akins as an outpatient for endoscopy. 03/01/2020-hemoglobin improved from 7.1-8.1 today. No evidence of any blood in the stool seen. Status post 4 units of PRBC was given to the hospital stay and a surgical consult was done. The recommendation from Dr. Akins is patient need outpatient EGD in few weeks time. Plan was explained to the patient intake in detail he agreed and preferred to go home. And is advised to avoid aspirin, ibuprofen and he was strongly advised not to eat starch or dirt (2) Dyspnea on exertion Is this a current diagnosis for this admission?: Yes Plan: 02/28/2020-patient came in with complaints of shortness of breath associated with palpitations shortness of breath especially with exercise. Shortness of breath most likely secondary to severe anemia. 4 8020-patient denies any shortness of breath this morning pulse ox is 98% on room air. Plan is to continue the present management dyspnea on exertion most likely secondary to severe anemia resolved. 03/01/2020-patient admitted with increasing shortness of breath most likely secondary to severe anemia. Denies any shortness of breath this morning pulse ox is 100% room air. (3) Microcytic anemia Is this a current diagnosis for this admission?: Yes Plan: 02/28/2020-blood work indicates microcytic anemia. It can be secondary to iron deficiency anemia due to pica. - Additional Information Resuscitation Status: Full Code Discharge Diet: Cardiac Discharge Activity: Activity As Tolerated Referrals: CABRERA RUIZ MD [Primary Care Provider] - 03/16/20 10:45 am EL AKINS MD [ACTIVE STAFF] - 04/03/20 8:15 am Home Medications: No Home Medications 02/28/20 History of Present Illiness History of Present Illness: GORDON AMOR is a 44 year old male With no significant past medical history went to primary care physician's office couple of days ago routine blood work indicates hemoglobin of 3.8. Patient came to the emergency room with complaints of palpitations associated with shortness of breath and generalized weakness. He admitted to using starches recently couple of spoons on daily basis. He also admitted to taking dirt for cravings until couple of months ago. The emergency room stool guaiac was positive. Patient denies any nausea denies any vomiting's denies any diarrhea. Is taking baby aspirin at home. Hemoglobin in the emergency room is 4.4 and plan is to admit him to IMCU transfuse 4 units of PRBC and surgical consult was requested. Patient vital signs are stable at this time. Hospital Course Hospital Course: 44 year old male With no significant past medical history went to primary care physician's office couple of days ago routine blood work indicates hemoglobin of 3.8. Patient came to the emergency room with complaints of palpitations associated with shortness of breath and generalized weakness. He admitted to using starches recently couple of spoons on daily basis. He also admitted to taking dirt for cravings until couple of months ago. The emergency room stool guaiac was positive. Patient denies any nausea denies any vomiting's denies any diarrhea. Is taking baby aspirin at home. Hemoglobin in the emergency room is 4.4 and plan is to admit him to IMCU transfuse 4 units of PRBC and surgical consult was requested. Patient vital signs are stable at this time. 02/29/[id number]-lsdx-old male admitted with hemoglobin of 4.4, status post 4 units of PRBC was given hemoglobin came up to 7.7. Surgical consult was done recommendation is to do the EGD and colonoscopy as an outpatient. Patient is on regular diet now. Plan is to continue to closely monitor his labs today and tomorrow if the hemoglobin is stable plan is to discharge him home tomorrow. Patient is feeling much better denies any palpitations denies any shortness of breath this morning. 03/[birth year]27-47-zgmj-old male admitted with hemoglobin of 4.4 stool guaiac was positive on admission. Surgical consult was done the recommendation is patient need outpatient endoscopy. Hemoglobin came up to 8.1 after giving 4 units of blood transfusion. No acute events in the last 24 hours. Patient is doing well. Patient is strongly advised to follow-up with Dr. Akins in next couple of weeks for outpatient procedure. Physical Exam Vital Signs: Temp Pulse Resp BP Pulse Ox 98.4 F 94 18 118/51 L 100 03/01/20 08:00 03/01/20 08:00 03/01/20 08:00 03/01/20 08:00 03/01/20 08:00 Intake & Output 02/29/20 03/01/20 03/02/20 06:59 06:59 06:59 Intake Total 3081.2 2152 Output Total 150 Balance 2931.2 2152 Weight 84.6 kg 85.3 kg General appearance: PRESENT: no acute distress, well-developed Head exam: PRESENT: atraumatic Eye exam: PRESENT: conjunctiva pale, PERRLA Mouth exam: PRESENT: moist, tongue midline Teeth exam: PRESENT: poor dentation Neck exam: ABSENT: carotid bruit, JVD, lymphadenopathy, thyromegaly Respiratory exam: PRESENT: decreased breath sounds Cardiovascular exam: PRESENT: RRR. ABSENT: diastolic murmur, rubs, systolic murmur GI/Abdominal exam: PRESENT: normal bowel sounds, soft. ABSENT: distended, guarding, mass, organolmegaly, rebound, tenderness Rectal exam: PRESENT: deferred Extremities exam: PRESENT: full ROM. ABSENT: calf tenderness, clubbing, pedal edema Neurological exam: PRESENT: alert, awake, oriented to person, oriented to place, oriented to time, oriented to situation, CN II-XII grossly intact. ABSENT: motor sensory deficit Psychiatric exam: PRESENT: appropriate affect, normal mood. ABSENT: homicidal ideation, suicidal ideation Results Laboratory Results: WBC 9.0 10^3/uL (4.0-10.5) 03/01/20 05:39 RBC 3.64 10^6/uL (4.35-5.55) L 03/01/20 05:39 Hgb 8.1 g/dL (13.5-17.0) L 03/01/20 05:39 Hct 24.5 % (37.9-51.0) L 03/01/20 05:39 MCV 67 fl (80-97) L 03/01/20 05:39 MCH 22.4 pg (27.0-33.4) L 03/01/20 05:39 MCHC 33.3 g/dL (32.0-36.0) 03/01/20 05:39 RDW 33.1 % (11.5-14.0) H 03/01/20 05:39 Plt Count 189 10^3/uL (150-450) 03/01/20 05:39 Lymph % (Auto) 17.4 % (13-45) 03/01/20 05:39 [place] % (Auto) 10.0 % (3-13) 03/01/20 05:39 Eos % (Auto) 4.4 % (0-6) 03/01/20 05:39 Baso % (Auto) 0.6 % (0-2) 03/01/20 05:39 Reticulocyte # 0.101 10^6/uL (0.028-0.122) 02/28/20 12:59 Absolute Neuts (auto) 6.1 10^3/uL (1.7-8.2) 03/01/20 05:39 Absolute Lymphs (auto) 1.6 10^3/uL (0.5-4.7) 03/01/20 05:39 Absolute Monos (auto) 0.9 10^3/uL (0.1-1.4) 03/01/20 05:39 Absolute Eos (auto) 0.4 10^3/uL (0.0-0.6) 03/01/20 05:39 Absolute Basos (auto) 0.1 10^3/uL (0.0-0.2) 03/01/20 05:39 Total Counted 100 02/28/20 12:59 Seg Neutrophils % 67.6 % (42-78) 03/01/20 05:39 Seg Neuts % (Manual) 82 % (42-78) H 02/28/20 12:59 Lymphocytes % (Manual) 6 % (13-45) L 02/28/20 12:59 Monocytes % (Manual) 11 % (3-13) 02/28/20 12:59 Eosinophils % (Manual) 1 % (0-6) 02/28/20 12:59 Basophils % (Manual) 0 % (0-2) 02/28/20 12:59 Abs Neuts (Manual) 7.3 10^3/uL (1.7-8.2) 02/28/20 12:59 Abs Lymphs (Manual) 0.5 10^3/uL (0.5-4.7) 02/28/20 12:59 Abs Monocytes (Manual) 1.0 10^3/uL (0.1-1.4) 02/28/20 12:59 Absolute Eos (Manual) 0.1 10^3/uL (0.0-0.6) 02/28/20 12:59 Abs Basophils (Manual) 0.0 10^3/uL (0.0-0.2) 02/28/20 12:59 Nucleated RBCs 2 /100 WBC (0) 02/28/20 12:59 Clumped Platelets PRESENT 03/01/20 05:39 Large Platelets PRESENT 02/28/20 12:59 Platelet Comment 03/01/20 05:39 Polychromasia 1+ 03/01/20 05:39 Hypochromasia 1+ 03/01/20 05:39 Poikilocytosis SLIGHT 02/29/20 05:58 Anisocytosis 4+ 03/01/20 05:39 Microcytosis 2+ 03/01/20 05:39 Target Cells SLIGHT 02/29/20 05:58 Tear Drop Cells SLIGHT 03/01/20 05:39 Ovalocytes SLIGHT 03/01/20 05:39 Schistocytes 1+ 02/28/20 12:59 Retic Count (auto) 3.76 % (0.66-2.85) H 02/28/20 12:59 PT 14.4 SEC (11.4-15.4) 02/29/20 05:58 INR 1.11 02/29/20 05:58 Sodium 135.9 mmol/L (137-145) L 03/01/20 05:39 Potassium 4.6 mmol/L (3.6-5.0) 03/01/20 05:39 Chloride 107 mmol/L (98-107) 03/01/20 05:39 Carbon Dioxide 24 mmol/L (22-30) 03/01/20 05:39 Anion Gap 5 (5-19) 03/01/20 05:39 BUN 13 mg/dL (7-20) 03/01/20 05:39 Creatinine 1.04 mg/dL (0.52-1.25) 03/01/20 05:39 Est GFR ( Amer) > 60 (>60) 03/01/20 05:39 Est GFR (MDRD) Non-Af > 60 (>60) 03/01/20 05:39 Glucose 91 mg/dL (75-110) 03/01/20 05:39 Hemoglobin A1c % 5.5 % (4.7-6.0) 02/29/20 05:58 Calcium 8.6 mg/dL (8.4-10.2) 03/01/20 05:39 Magnesium 2.0 mg/dL (1.6-2.3) 03/01/20 05:39 Iron 22.3 ug/dL (49-181) L 02/28/20 12:59 TIBC 450 ug/dL (250-450) 02/28/20 12:59 % Saturation 5 % 02/28/20 12:59 Ferritin 3.08 ng/mL (17.9-464.0) L 02/28/20 12:59 Total Bilirubin 0.3 mg/dL (0.2-1.3) 03/01/20 05:39 Direct Bilirubin 0.0 mg/dL (0.0-0.4) 03/01/20 05:39 Neonat Total Bilirubin Not Reportable 03/01/20 05:39 Neonat Direct Bilirubin Not Reportable 03/01/20 05:39 Neonat Indirect Bili Not Reportable 03/01/20 05:39 AST 28 U/L (17-59) 03/01/20 05:39 ALT 15 U/L (<50) 03/01/20 05:39 Alkaline Phosphatase 23 U/L (38-126) L 03/01/20 05:39 Ammonia 12.2 umol/L (9-33) 02/29/20 05:58 NT-Pro-B Natriuret Pep 78 pg/mL (<125) 02/29/20 05:58 Total Protein 6.0 g/dL (6.3-8.2) L 03/01/20 05:39 Albumin 3.0 g/dL (3.5-5.0) L 03/01/20 05:39 Triglycerides 39 mg/dL (<150) 02/29/20 05:58 Cholesterol 77.25 mg/dL (0-200) 02/29/20 05:58 LDL Cholesterol Direct 37 mg/dL (<100) 02/29/20 05:58 VLDL Cholesterol 8.0 mg/dL (10-31) L 02/29/20 05:58 HDL Cholesterol 34 mg/dL (>40) L 02/29/20 05:58 Vitamin B12 377.0 pg/mL (239-931) 02/28/20 12:59 Folate 11.20 ng/mL (>2.76) 02/28/20 12:59 Urine Color YELLOW 02/28/20 15:36 Urine Appearance CLEAR 02/28/20 15:36 Urine pH 5.0 (5.0-9.0) 02/28/20 15:36 Ur Specific [place] 1.012 02/28/20 15:36 Urine Protein NEGATIVE mg/dL (NEGATIVE) 02/28/20 15:36 Urine Glucose (UA) NEGATIVE mg/dL (NEGATIVE) 02/28/20 15:36 Urine Ketones NEGATIVE mg/dL (NEGATIVE) 02/28/20 15:36 Urine Blood NEGATIVE (NEGATIVE) 02/28/20 15:36 Urine Nitrite NEGATIVE (NEGATIVE) 02/28/20 15:36 Urine Bilirubin NEGATIVE (NEGATIVE) 02/28/20 15:36 Urine Urobilinogen NEGATIVE mg/dL (<2.0) 02/28/20 15:36 Ur Leukocyte Esterase NEGATIVE (NEGATIVE) 02/28/20 15:36 Urine WBC (Auto) 0 /HPF 02/28/20 15:36 Urine RBC (Auto) 0 /HPF 02/28/20 15:36 Urine Mucus (Auto) RARE /LPF 02/28/20 15:36 Urine Ascorbic Acid NEGATIVE (NEGATIVE) 02/28/20 15:36 POC Stool Occult Blood POSITIVE (NEGATIVE) 02/28/20 15:07 Urine Opiates Screen NEGATIVE 02/28/20 15:36 Urine Methadone Screen NEGATIVE 02/28/20 15:36 Ur Barbiturates Screen NEGATIVE 02/28/20 15:36 Ur Phencyclidine Scrn NEGATIVE 02/28/20 15:36 Ur Amphetamines Screen NEGATIVE 02/28/20 15:36 U Benzodiazepines Scrn NEGATIVE 02/28/20 15:36 Urine Cocaine Screen NEGATIVE 02/28/20 15:36 U Marijuana (THC) Screen NEGATIVE 02/28/20 15:36 Slides for Path Review PATHOLOGIST REVIEWED 02/28/20 12:59 Blood Type A POSITIVE 02/28/20 12:59 Antibody Screen NEGATIVE 02/28/20 12:59 Crossmatch See Detail 02/28/20 12:59 02/29/20 05:58 NT-Pro-B Natriuret Pep 78 Impressions: Chest X-Ray 02/28/20 15:21 IMPRESSION: NO ACUTE RADIOGRAPHIC FINDING IN THE CHEST. Plan Plan of Treatment: Patient is advised to follow-up with primary care physician Dr. Ruiz, patient is advised to follow-up with Dr. Akins in a couple of weeks for possible EGD. Time Spent: Greater than 30 Minutes Stroke Is this a Stroke Patient?: No Acute Heart Failure - Is this a Heart Failure Patient?: No
== END 2020-03-01 08:58 | disposition home or self-care (01) | DRG 812 ==
LOC: ER 12:28 → EH 15:21 → 3S 21:15
PROVIDERS: ADMIT Internal Medicine; ATTEND Internal Medicine
PROC: 30233N1 Transfusion of Nonautologous Red Blood Cells into Peripheral Vein, Percutaneous Approach (ICD-10-PCS; principal; 2020-02-28)
PROC: 30233N1 Transfusion of Nonautologous Red Blood Cells into Peripheral Vein, Percutaneous Approach (ICD-10-PCS; 2020-02-29)
DX: D50.9 Iron deficiency anemia, unspecified (principal); D57.3 Sickle-cell trait; F50.89 Other specified eating disorder; R06.00 Dyspnea, unspecified; R19.5 Other fecal abnormalities; Z96.649 Presence of unspecified artificial hip joint; Z82.49 Family history of ischemic heart disease and other diseases of the circulatory system
CPT/HCPCS: 36415; 36430; 71045; 80053; 80061; 80307; 81001; 82140; 82270; 82607; 82728; 82746; 83036; 83540; 83550; 83735; 83880; 85025; 85045; 85610; 86850; 86900; 86901; 86920; 93005; 93010; 99285; C9113; J1756; J3411; J3490; J7030; J7050; P9016